=== PATIENT | male | born 1970 | race Caucasian/White ===

== ENCOUNTER 2020-06-11 03:01 | Emergency (ER) | payer OTHER, SELFPAY ==
[2020-06-11 03:10] VITALS: BP 152/98; BP 175/96; PULSE 84; PULSE 86; RESP 16; TEMP 36.8; O2SAT 98; BMI 29.0
--- NOTE | 2020-06-11 03:10 | XR_ITS ---
EXAMINATIONS: LEFT HAND 3 VIEWS AND LEFT WRIST 3 VIEWS CLINICAL INFORMATION: Pain after fall. COMPARISON: None. TECHNIQUE: AP, lateral, oblique views of the left hand were obtained. AP, lateral, oblique views of the left wrist are provided. FINDINGS: There is incomplete distal left radial fracture. The proximal carpal row is intact. There is mild soft tissue swelling about the dorsum of the hand. XR/XR hand wrist LT IMPRESSION: Incomplete distal left radial fracture.
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
[2020-06-11] MEDS: Ibuprofen 600 MG TABLET PO (03:28)
--- NOTE | 2020-06-11 03:37 | PC.NURSE ---
swelling to left hand and wrist. ice pack applied and pt medicated with ibuprofen. pt awake and alert, following commands. tenderness in left forearm down to hands. pain upon palpation, limited ability to make a fist. no bleeding or bruising.
--- NOTE | 2020-06-11 03:56 | PC.NURSE ---
PT SLEEPING, WAKES TO VOICE.
[2020-06-11 04:38] VITALS: BP 179/100; PULSE 90; O2SAT 97
--- NOTE | 2020-06-11 04:38 | PC.NURSE ---
GOOD TEMPERATURE AND SENSATION FOLLOWINGAPPLICATION OF SPLING TO LEFT LOWER ARM.
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
== END 2020-06-11 04:43 | disposition home or self-care (01) ==
PROVIDERS: Emergency Provider Emergency Medicine Emergency Medical Services; PCP Nurse Practitioner Family
DX: S52.502A Unspecified fracture of the lower end of left radius, initial encounter for closed fracture (principal); M25.532 Pain in left wrist; Y29.XXXA Contact with blunt object, undetermined intent, initial encounter; Y93.9 Activity, unspecified; Y92.009 Unspecified place in unspecified non-institutional (private) residence as the place of occurrence of the external cause; Y99.9 Unspecified external cause status
CPT/HCPCS: 29105; 73110; 73130; 99283; 99284

== ENCOUNTER → 2020-06-15 08:51 | Outpatient (BNVA) | payer OTHER, SELFPAY | PROVIDERS: Visit Provider Physician Assistant | DX: S52.502A Unspecified fracture of the lower end of left radius, initial encounter for closed fracture (principal) | CPT/HCPCS: 25600; 29075 ==

== ENCOUNTER → 2020-06-26 10:45 | Outpatient (BNVA) | payer OTHER, SELFPAY | PROVIDERS: Visit Provider Physician Assistant | DX: Z76.89 Persons encountering health services in other specified circumstances (principal) ==

== ENCOUNTER 2020-07-05 13:40 | Outpatient (REF) | payer OTHER, SELFPAY ==
--- NOTE | 2020-07-05 13:40 | XR_ITS ---
EXAMINATION: XR WRIST, LEFT CLINICAL INFORMATION: Fracture distal radius. COMPARISON: Radiographs left hand and wrist 06/11/2020 TECHNIQUE: PA, lateral, and oblique views of the left wrist. FINDINGS: There is transverse fracture distal radial metaphysis with interval callus formation since prior study 06/11/2020. No significant change in alignment. No dislocation or destructive process. XR/XR wrist LT min 3V IMPRESSION: Healing fracture distal left radius.
== END 2020-07-05 13:41 | disposition home or self-care (01) ==
LOC: HO.HOSX 13:40
PROVIDERS: Visit Provider Physician Assistant
DX: S52.502D Unspecified fracture of the lower end of left radius, subsequent encounter for closed fracture with routine healing (principal)
CPT/HCPCS: 29075; 29085; 73110

== ENCOUNTER 2020-07-25 08:44 | Outpatient (REF) | payer OTHER, SELFPAY | END 2020-07-25 08:45 | disposition home or self-care (01) | LOC: HO.HOSX 08:44 | PROVIDERS: Visit Provider Physician Assistant | DX: Z13.89 Encounter for screening for other disorder (principal) ==

== ENCOUNTER → 2020-08-14 12:16 | Outpatient (BNVA) | payer OTHER, SELFPAY | PROVIDERS: Visit Provider Physician Assistant | DX: Z76.89 Persons encountering health services in other specified circumstances (principal) ==

== ENCOUNTER 2021-04-10 17:07 | Emergency (ER) | payer OTHER, BC, SELFPAY ==
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
[2021-04-10 17:33] VITALS: BP 112/73; PULSE 90; RESP 18; O2SAT 95; BMI 31.4
[2021-04-10 18:31] LABS: MANUAL DIFF FLAG NO
[2021-04-10 18:33] LABS: Basophils Percent Auto 0.3 % (0-2); Eosinophils Absolute Auto 0.2 X10*3/uL (0.0-0.4); Eosinophils Percent Auto 1.7 % (0-4); Hematocrit 43.5 % (42-52); Hemoglobin 15.2 g/dl (14.0-18.0); Imm Gran Abs Auto 0.02 X10*3/uL (0.00-0.03); Imm Gran Pct Auto 0.2 % (0.0-0.4); Lymphocytes Absolute Auto 1.3 X10*3/uL (1.2-4.9); Lymphocytes Percent Auto 14.5 % (20-40); Mean Corpuscular HGB Conc 34.9 g/dl (31.0-36.0); Mean Corpuscular Hemoglobin 33.5 pg (27.0-33.0); Mean Corpuscular Volume 95.8 fL (80-98); Mean Platelet Volume 9.3 fL (9.4-12.4); Monocytes Absolute Auto 0.9 X10*3/uL (0.1-1.2); Monocytes Percent Auto 9.2 % (2-11); Neutrophils Absolute Auto 6.8 X10*3/uL (2.0-8.3); Neutrophils Percent Auto 74.1 % (45-73); Platelet Count 236 X10*3/uL (160-400); Red Blood Count 4.54 X10*6/uL (4.60-5.80); Red Cell Distribution Width 13.2 % (11.0-16.0); White Blood Count 9.2 X10*3/uL (4.8-10.8)
[2021-04-10 18:48] LABS: Alanine Aminotransferase 23 U/L (0-40); Albumin Level 3.9 g/dL (3.5-5.0); Alkaline Phosphatase 46 U/L (39-117); Anion Gap 11 (12-20); Aspartate Amino Transferase 24 U/L (5-37); Bilirubin Total 0.5 mg/dL (0.0-1.0); Blood Urea Nitrogen 17 mg/dL (9-16); Calcium 8.5 mg/dL (8.4-10.2); Carbon Dioxide 24 mmol/L (22-29); Chloride 107 mmol/L (96-108); Creatinine Clr Calc Pharmacy 82.8; Estimated Glomerular Filt Rate > 60; Glucose Random 166 mg/dL (60-115); Potassium 4.1 mmol/L (3.3-5.1); Sodium 138 mmol/L (135-145); Total Protein 6.1 g/dL (6.5-8.0)
[2021-04-10 19:51] VITALS: BP 140/82; PULSE 78; RESP 18; TEMP 36.6; O2SAT 94
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
--- NOTE | 2021-04-10 20:20 | PC.NURSE ---
x-ray in room.
[2021-04-10] MEDS: Ketorolac Tromethamine 60 MG/2 ML VIAL IM (20:33)
== END 2021-04-10 21:48 | disposition home or self-care (01) ==
PROVIDERS: Emergency Provider Emergency Medicine; PCP Nurse Practitioner Family
DX: S93.402A Sprain of unspecified ligament of left ankle, initial encounter (principal); S70.12XA Contusion of left thigh, initial encounter; V23.4XXA Motorcycle driver injured in collision with car, pick-up truck or van in traffic accident, initial encounter; I10 Essential (primary) hypertension; Y93.89 Activity, other specified; Y92.414 Local residential or business street as the place of occurrence of the external cause; Y99.9 Unspecified external cause status
CPT/HCPCS: 36415; 73610; 73700; 80053; 85025; 96372; 99283; 99284; J1885

== ENCOUNTER 2021-04-27 15:39 | Outpatient (REF) | payer BC, SELFPAY ==
--- NOTE | ~2021-04-27 | MR_ITS ---
EXAMINATION: MRI ANKLE WITHOUT CONTRAST, LEFT CLINICAL INFORMATION: Pain. COMPARISON: Left ankle radiographs dated 04/10/2021. TECHNIQUE: Multisequence MR imaging of the left ankle was obtained without contrast on a high-field strength scanner. FINDINGS: BONE AND ARTICULAR CARTILAGE: Marrow edema within the posterior aspect of the tibial plafond with a possible tiny cortical fracture fragment as well as adjacent soft tissue edema and periosteal reaction. Marrow edema within the adjacent posterior talar dome, consistent with an osseous contusion. Intact articular cartilage. No talar osteochondral lesion. Degenerative cystic change within the medial malleolus adjacent to the deltoid ligament. ACHILLES TENDON: Normal. OTHER TENDONS: Fluid within the posterior tibialis and flexor digitorum longus tendon sheaths, consistent with tenosynovitis. No transverse tendon defect. LIGAMENTS: Thickening and abnormal signal of the anterior tibiofibular ligament with a probable ewex-nehn-tixingwyb tear. Additional abnormal signal of the posterior tibiofibular ligament. Edema extending proximally along the distal tibiofibular syndesmosis. Findings are consistent with a high ankle sprain. Overlying lateral subcutaneous edema. Attenuation of the deltoid ligament, consistent with a remote sprain/partial tear JOINT FLUID AND SOFT TISSUES: Moderate tibiotalar and small subtalar joint effusions. Lateral subcutaneous edema. PLANTAR FASCIA: Tiny plantar and dorsal calcaneal enthesophytes. Intact plantar fascia. SINUS TARSI AND TARSAL TUNNEL: Normal. MR/MR ankle LT wo con IMPRESSION: 1. Prominent edema at the posterior aspect of the tibial plafond with a possible tiny cortical fracture fragment. Adjacent edema within the posterior talar dome, consistent with an osseous contusion. 2. Near-complete sprain/partial tear of the anterior tibiofibular ligament with an additional sprain/partial tear of the posterior tibiofibular ligament and edema extending proximally along the distal tibiofibular syndesmosis. Findings are consistent with a high ankle sprain. Overlying lateral subcutaneous edema. 3. Prominent tenosynovitis of the posterior tibialis and flexor digitorum longus tendons. No transverse tendon defect. 4. Remote sprain/partial tear of the deltoid ligament with mild degenerative cystic change and adjacent medial malleolus. 5. Moderate tibiotalar and small subtalar joint effusions.
== END 2021-04-27 15:40 | disposition home or self-care (01) ==
LOC: HO.MRI 15:39
PROVIDERS: PCP Nurse Practitioner Family; Visit Provider Nurse Practitioner Family
DX: M25.572 Pain in left ankle and joints of left foot (principal); M25.472 Effusion, left ankle; R29.898 Other symptoms and signs involving the musculoskeletal system
CPT/HCPCS: 73721

== ENCOUNTER 2021-09-07 15:50 | Outpatient (REF) | payer BC, SELFPAY ==
--- NOTE | ~2021-09-07 | US_ITS ---
EXAMINATION: US SCROTUM CLINICAL INFORMATION: Left testicular pain. COMPARISON: None. TECHNIQUE: A sonogram of the scrotum was performed assessing blanco-scale appearance and color Doppler flow. Spectral Doppler analysis of the arterial and venous flow were performed in the testes bilaterally. FINDINGS: RIGHT: Right testicle measures 3.0 x 2.2 x 2.7 cm, volume 10 mL. No focal testicular parenchymal lesions are visualized. Spectral Doppler analysis of the arterial and venous flow is normal in the right testis. Right epididymal head is normal in size. No right hydrocele or varicocele is seen. Right epididymal Doppler flow is normal. LEFT: Left testicle measures 3.8 x 2.2 x 2.7 cm, volume 12 mL. No focal testicular parenchymal lesions are visualized. Spectral Doppler analysis of the arterial and venous flow is in the left testis. Left epididymal head is normal in size with a small 0.2 cm simple epididymal head cyst. No left hydrocele or varicocele is seen. Left epididymal Doppler flow is US/US scrotum doppler IMPRESSION: No acute sonographic abnormalities. Specifically, no evidence of testicular torsion at the moment of this examination.
== END 2021-09-07 15:51 | disposition home or self-care (01) ==
LOC: HO.US 15:50
PROVIDERS: Visit Provider Physician Assistant
DX: N50.812 Left testicular pain (principal)
CPT/HCPCS: 93975

== ENCOUNTER → 2021-10-02 10:35 | Outpatient (BNVA) | payer BC, SELFPAY | PROVIDERS: PCP Nurse Practitioner Family; Referring Provider Nurse Practitioner Family; Visit Provider Nurse Practitioner Family ==

== ENCOUNTER 2021-11-01 08:35 | Day surgery (SDC) | payer BC, SELFPAY ==
[2021-10-25 19:42] VITALS: BMI 33.6
--- NOTE | 2021-10-31 10:22 | HO.ANESPROP2 ---
Documented by User: Maida Faith NP 11/07/21 15:15 HPI - Anesthesia Eval Consult details Narrative: 50yo M for Colonoscopy PMFSH Active Problems Active Problems: All Active Problems (Updated 10/25/21 @ 19:42 by Sofia Adam, RN) Distal radius fracture, left (Acute) Fracture of distal end of left radius with routine healing (Acute) Ankle weakness (Acute) Pain and swelling of ankle (Acute) Ankle fracture, left (Acute) Strain of left groin (Acute) Screening for colon cancer (Acute) Testicular pain, left (Acute) Past Medical History Medical History Back pain Hypertension Insomnia Low testosterone ADDISON (obstructive sleep apnea) Social anxiety disorder Family History Family History Father Bladder cancer Mother HTN (hypertension) COPD (chronic obstructive pulmonary disease) Brother No problems noted. Sister HTN (hypertension) CAD (coronary artery disease) Daughter No problems noted. Son No problems noted. Son No problems noted. Son No problems noted. 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 Allergies Allergy/AdvReac Type Severity Reaction Status Date / Time No Known Allergies Allergy Verified 08/29/21 11:22 Exam Exam Date and Time: October 31, 2021 1022 Height,Weight and Vital Signs: Height 5 ft 7 in Weight 97.522 kg Assessment and Plan Assessment Anesthesia Assessment: Chart Reviewed Documented by User: Cherry Miller MD 11/01/21 09:50 PMF Past Medical History Medical History Back pain Hypertension Insomnia Low testosterone ADDISON (obstructive sleep apnea) Social anxiety disorder Cognitive capacity: @ Family History Family History Father Bladder cancer Mother HTN (hypertension) COPD (chronic obstructive pulmonary disease) Brother No problems noted. Sister HTN (hypertension) CAD (coronary artery disease) Daughter No problems noted. Son No problems noted. Son No problems noted. Son No problems noted. 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
--- NOTE | 2021-11-01 08:52 | MHC.SHP ---
Pre-Procedural Eval Section A Date of Service: 11/01/21 Section B Chief Complaint: Screening Relevant Family History (Specify if Yes): No Relevant Social History: None Present Medications: see Short Stay Collaborative assessment Medical History: Significant History (Back pain Hypertension Insomnia Low testosterone ADDISON (obstructive sleep apnea) Social anxiety disorder) History of Previous Operations: Relevant previous surgery/procedure and date(s) (History of cholecystectomy History of hand surgery History of neck surgery) Allergies: Allergies Allergy/AdvReac Type Severity Reaction Status Date / Time No Known Allergies Allergy Verified 08/29/21 11:22 Review of Systems Sugical H&P ROS: Negative: Constitution, Cardiovascular, Respiratory, Neurological, Psychiatric, Hem-Onc, Allergic/Immunologic, Gastrointestinal, Genitourinary, Musculoskeletal, Integumentary, Endocrine and Eyes/Ears/Nose/Throat Exam Surgical H&P Exam: Normal: HEENT, Normal: Heart, Normal: Lungs, Normal: Extremities, Normal: Abdomen, Normal: Skin and Normal: Neurological Plan Diagnosis/Plan: Unchanged I have reviewed the history and physical and performed a pertinent physical examination on my patient. No changes have occurred unless specified.
[2021-11-01 08:53] VITALS: BP 125/94; PULSE 86; RESP 16; TEMP 36.9; O2SAT 95
[2021-11-01] MEDS: Sodium Phosphate,Mono-Dibasic 133 ML ENEMA PR (09:06)
--- NOTE | 2021-11-01 09:12 | PC.NURSE ---
pt reported had breakfast and lunch yesterday before switching to clear liquids around 1200 noon. Pt stated completed prep and light brown to possible yellow return. Dr. Gonzalez aware and at bedside. Fleet enema ordered and given. Pt having yellow/ brown tinged liquid return. notified.
[2021-11-01] MEDS: Lactated Ringers 1,000 ML 100 ML IVCONT (09:18)
--- NOTE | 2021-11-01 09:38 | PM.OP ---
Brief Operative Note Date of Service: 11/01/21 Pre-op diagnosis: screening colonoscopy Post-op diagnosis: same Procedure: see op note Surgeon: Kassy Gonzalez MD Anesthesia: MAC Was an Convertible Sofa Bedspring Tester used for this Procedure?: No Estimated blood loss (mL): 0 Condition: stable Disposition: PACU
--- NOTE | 2021-11-01 09:39 | P.OP_ITS ---
Operative Note Operative Note Date of Service: 11/01/21 Narrative: Operative Information Procedure Description: Colonoscopy Indication: screening colonoscopy-average risk Anesthesia: MAC COLONOSCOPY Instrument: Olympus variable stiffness adult scope 190L Colonoscopy Monitoring: Vital signs and clinical assessment, continuous EKG monitoring, Pulse oximetry, Carbon Dioxide monitoring and blood pressure monitoring were done throughout the procedure. Colon withdrawal time was 9 minutes. Procedure: The patient was placed in the left lateral decubitis position and pre-procedure medications were administered. After a digital rectal examination of the ano-rectum, the video colonoscope was inserted into the rectum and advanced through the colon to the cecum/TI. The colonoscope was slowly withdrawn in a retrograde panoramic fashion and the colon mucosa was carefully examined including a retroflexed view of the rectum. Findings and interventions are described below. Procedure Difficulty: easy Findings: Terminal Ileum-normal Cecum:normal Ascending Colon: normal Transverse Colon -normal Descending Colon:normal Sigmoid Colon: normal Rectum: Retroflexion with small to moderate sized internal hemorrhoids, grade I Anorectum - normal Colon preparation: [place] Bowel Preparation Scale Right colon; 2 Transverse colon: 3 Left colon; 3 (0 = Unprepared colon segment with mucosa not seen due to solid stool that cannot be cleared. 1 = Portion of mucosa of the colon segment seen, but other areas of the colon segment not well seen due to staining, residual stool and/or opaque liquid. 2 = Minor amount of residual staining, small fragments of stool and/or opaque liquid, but mucosa of colon segment seen well. 3 = Entire mucosa of colon segment seen well with no residual staining, small fragments of stool or opaque liquid) Impression and Post Procedure Diagnosis: internal hemorrhoids Plan: High fiber diet leaflet Avoid straining at stool, epsom salts and sitz bath, anusol supps or cream Repeat Colonoscopy in 10 years or earlier if clinically indicated Above findings were reviewed with the patient and relevant handouts were provided if indicated.
[2021-11-01 10:21] VITALS: BP 121/65; PULSE 93; RESP 18; TEMP 36.4; O2SAT 96
--- NOTE | 2021-11-01 10:28 | PC.NURSE ---
dr gong at bedside going over findings pt verbalized understanding
[2021-11-01 10:36] VITALS: BP 126/81; PULSE 89; RESP 8; TEMP 36.6; O2SAT 97
== END 2021-11-01 11:00 | disposition home or self-care (01) ==
PROVIDERS: PCP Nurse Practitioner Family; Visit Provider Internal Medicine Gastroenterology
PROC: 0DJD8ZZ Inspection of Lower Intestinal Tract, Via Natural or Artificial Opening Endoscopic (ICD-10-PCS; CPT 45378; principal; 2021-11-01 09:30)
DX: Z12.11 Encounter for screening for malignant neoplasm of colon (principal); K64.0 First degree hemorrhoids; I10 Essential (primary) hypertension; G47.33 Obstructive sleep apnea (adult) (pediatric); Z79.899 Other long term (current) drug therapy; Z90.49 Acquired absence of other specified parts of digestive tract; Z87.891 Personal history of nicotine dependence
CPT/HCPCS: 45378